=== PATIENT | female | born 2000 | race Hispanic/Latino ===

== ENCOUNTER 2025-03-27 15:01 | Emergency (ER) | payer OTHER, SELFPAY ==
[2025-03-27 15:04] VITALS: BP 124/79
[2025-03-27 15:16] VITALS: BMI 21.8
--- NOTE | 2025-03-27 15:27 | ED.GENMED ---
History of Present Illness
General
Chief Complaint: Headache
Source: patient
Time Seen by Provider: 03/27/25 15:14
History of Present Illness
History of Present Illness:
24-year-old female presents to the emergency room complaining of a headache. Patient states that she has been getting headaches occasionally for years. Her primary care doctor recently prescribed Imitrex because they have been more frequent and
more severe. Patient states she has not had any imaging or testing for her headache. She took 2 oral doses of Imitrex today without any improvement. Patient endorses photophobia, nausea and vomiting. The headaches are located in the frontal
region and move a bit towards the hindu bilaterally. Patient denies any focal weakness. She feels tingling in her hands and feet.
Phy Exam
Physical Exam
Physical Exam:
General: Awake, Alert, Oriented X3. Appears uncomfortable, hyperventilating
Vitals: unremarkable
Head: Atraumatic
Eyes: Pupils equal, EOMI
Throat: Airway intact, no exudates
Neck: Trachea midline
Lungs: Clear and equal b/l
Heart: Regular rate, no murmurs
Abd: Soft, Nontender, No pulsatile mass
Neuro: Cranial nerves intact, muscle strength equal bilaterally, cerebellar exam normal
Skin: Warm, dry, no rash
Extremities: pulses equal b/l, no edema
Course
Orders/Labs/Results
Orders:
Orders
03/27/25 15:25
0.9% Sodium Chloride 1000 ml [Nss] 1,000 ml IV BOLUS
Diphenhydramine [Benadryl] 25 mg IV NOW STA
Ketorolac [Toradol] 15 mg IV NOW STA
Metoclopramide [Reglan] 10 mg IV NOW STA
03/27/25 15:27
Test Result ONCE
03/27/25 15:42
Basic Metabolic Panel Urgent
Complete Blood Count/With Diff Urgent
HCG, Serum Qualitative Screen Urgent
03/27/25 16:17
CT Head W/o Iv Contrast Urgent
Comment:
Reason For Exam: headache, more severe and more frequent
03/27/25 18:40
Acetaminophen 1000MG/100Ml [Ofirmev] 1,000 mg in 100 ml IV ONCE
Acetaminophen IV Indication:: ED Narcotic Naive Pt-ONCE
Abnormal Lab Results
03/27/25
15:42
WBC 13.1 H 10^3/uL
(4.8-10.8)
MPV 10.8 H fL
(7.4-10.4)
Abs Immat Gran (auto) 0.1 H 10^3/uL
(0-0.05)
Absolute Neuts (auto) 11.9 H 10^3/uL
(1.4-6.5)
Absolute Lymphs (auto) 0.8 L 10^3/uL
(1.2-3.4)
Neutrophils % 90.8 H %
(42.2-75.2)
Lymphocytes % 6.2 L %
(20.5-51.1)
Chloride 111 H mmol/L
(98-107)
Carbon Dioxide 17 L mmol/L
(22-30)
Calcium 10.3 H mg/dl
(8.4-10.2)
03/27/25 15:42
03/27/25 15:42
Vital Signs
Initial and Last Documented VS:
Initial Vital Signs
Temp Pulse Resp BP Pulse Ox
97.4 F 94 15 124/79 100
03/27/25 15:04 03/27/25 15:04 03/27/25 15:04 03/27/25 15:04 03/27/25 15:04
Last Documented Vital Signs
Temp Pulse Resp BP Pulse Ox
98.0 F 88 18 91/60 98
03/27/25 18:23 03/27/25 20:07 03/27/25 20:07 03/27/25 20:07 03/27/25 20:07
MDM/Problems Addressed
Differential Diagnosis Includes:
Migraine headache, tension headache, cranial mass
MDM/Problems Addressed:
Patient presents with what sounds to be a migraine headache however the patient states they have been much more severe and happening much more commonly over the past month or 2. No improvement with Imitrex at home. Patient given Reglan and
Benadryl as well as Toradol. Slowly the patient began to feel better. Ultimately her headache was much improved. We gave her also a dose of IV Tylenol which caused resolution of her headache. CT showed no acute abnormality. Labs all reassuring.
Patient stable for discharge home.
*Radiology
Radiology exam reviewed: radiology read reviewed
*Pulse Oximetry
Patient hypoxic: no
*Critical Care Note
Total Time (30-74mins, 75-104mins- exclusive of procedures): Not Applicable
ED Attending Note
-
Portions of this chart may have been created with voice recognition software.� Occasional wrong word or��sound alike� substitutions may have occurred due to the inherent limitations of voice recognition software.
Discharge Plan
Departure
Patient Disposition: Home (Routine Discharge)
Date of Disposition: 03/27/25
Time of Disposition: 19:47
Patient with high blood pressure during this ER visit?: No
Condition: Good
Discharge Problem:
Migraine headache
Instructions: Migraines (DC)
Referrals:
Topher Hall MD [Active] -
NONE,* [Family Provider] -
Activity Restrictions/Additional Instructions:
I have given you the number for our neurologist, Dr. Hall. You should call and make an appointment with him.
Interventions
Interventions:
*Risk Screen - Suicide Last Done: 03/27/25 15:04
*General Assessment Last Done: 03/27/25 15:04
*Neglect/Abuse Screening Last Done: 03/27/25 15:16
*ED- Fall Risk Assessment Last Done: 03/27/25 15:16
*ED COVID-19 Vaccine History Last Done: 03/27/25 15:16
*Nursing Disposition Last Done: 03/27/25 20:13
ED- Neurological Assessment Last Done: 03/27/25 15:16
Discharge Date and Time
Discharge Date/Time: 03/27/25 20:18
Print Language: SLOVENIAN
[2025-03-27] MEDS: REGLAN 10 MG IV (15:37)
[2025-03-27] MEDS: NSS 1000 IV (15:37)
[2025-03-27] MEDS: TORADOL 15 MG IV (15:37)
[2025-03-27] MEDS: BENADRYL 25 MG IV (15:37)
[2025-03-27 15:51] LABS: % Basophils 0.4 % (0-2); % Eosinophils 0.1 % (0-6); % Immature Granulocytes 0.4 % (0-0.5); % Lymphocytes 6.2 % (20.5-51.1); % Monocytes 2.1 % (1.7-9.3); % Neutrophils 90.8 % (42.2-75.2); Absolute Basophils 0.1 10^3/uL (0-0.2); Absolute Immature Granulocytes 0.1 10^3/uL (0-0.05); Absolute Lymphocytes 0.8 10^3/uL (1.2-3.4); Absolute Monocytes 0.3 10^3/uL (0.1-0.6); Absolute Neutrophils 11.9 10^3/uL (1.4-6.5); Hematocrit 40.1 % (37.0-47.0); Hemoglobin 14.5 g/dL (12.0-16.0); Mean Corp Hgb Conc. 36.2 g/dL (33.0-37.0); Mean Corpuscular Hgb 30.4 pg (27.0-31.0); Mean Corpuscular Volume 84.1 fL (81.0-99.0); Mean Platelet Volume 10.8 fL (7.4-10.4); Nucleated Red Blood Cells % 0 %; Platelet Count 233 10^3/uL (130-400); Red Blood Cell Count 4.77 10^6/uL (4.20-5.40); Red Cell Dist. Width 12.2 % (11.5-14.5); White Blood Cell Count 13.1 10^3/uL (4.8-10.8)
[2025-03-27 16:05] LABS: HCG, Serum Qualitative Screen Negative
[2025-03-27 16:09] LABS: Blood Urea Nitrogen 11 mg/dl (7-17); Calcium 10.3 mg/dl (8.4-10.2); Carbon Dioxide 17 mmol/L (22-30); Chloride 111 mmol/L (98-107); Estimated Creatinine Clearance 116 ml/min; Glucose 98 mg/dl (70-99); Potassium 4.1 mmol/L (3.5-5.1); Sodium 139 mmol/L (135-145); eGFR > 60.00
[2025-03-27 18:23] VITALS: BP 97/59
[2025-03-27] MEDS: OFIRMEV 100 IV (18:43)
[2025-03-27 20:07] VITALS: BP 91/60
== END 2025-03-27 20:18 | disposition home or self-care (01) ==
LOC: EMR 15:01
PROVIDERS: EMERGENCY PHYSICIAN Emergency Medicine
DX: G43.909 Migraine, unspecified, not intractable, without status migrainosus (principal)
CPT/HCPCS: 96374; 96375; 96361; 99284; 70450; 80048; 84703; 85025